=== PATIENT | female | born 1935 | race Caucasian/White ===

== ENCOUNTER → 2018-01-04 14:15 | Outpatient (REF) | payer MEDICARE, BC, SELFPAY ==
[2018-01-04 14:56] LABS: International Normalized Ratio 1.2
== END ==
LOC: OLS.DANBUR 14:15
DX: I48.91 Unspecified atrial fibrillation (principal)
CPT/HCPCS: 36415; 85610

== ENCOUNTER → 2018-01-08 05:30 | Outpatient (REF) | payer MEDICARE, BC, SELFPAY ==
[2018-01-08 09:08] LABS: International Normalized Ratio 1.5; Prothrombin Time (Protime)PT. 18.3 SECONDS (11.7-14.9)
== END ==
LOC: OLS.DANBUR 05:30
DX: Z79.01 Long term (current) use of anticoagulants (principal)
CPT/HCPCS: 36415; 85610

== ENCOUNTER → 2018-01-15 05:00 | Outpatient (REF) | payer MEDICARE, BC, SELFPAY ==
[2018-01-15 07:30] LABS: Prothrombin Time Fingerstick 26.8 SEC (11.9-14.4)
== END ==
LOC: OLS.DANBUR 05:00
PROVIDERS: Visit Provider Family Medicine
DX: Z79.01 Long term (current) use of anticoagulants (principal)
CPT/HCPCS: 36416; 85610

== ENCOUNTER 2018-08-05 13:30 | Outpatient (RCR) | payer MEDICARE, BC, SELFPAY ==
--- NOTE | 2018-07-08 15:25 | HP.OTEVAL ---
Patient's Visit Information KVNG ROSENBERG is a 83 year old F, referred to Occupational Therapy by Justin Walker, with a diagnosis of right radius fx.. Date of Evaluation: 07/08/18 Occupational Therapist: Jena Ortiz, FARNAZR/Oumar, CHT - Subjective Subjective: pt states she had a fall on 2017 while walking in her home. pt states she did not go to the [facility] until a week later. pt states she moved tow ribs out and they were painful- pt went to on and was placed in a brace for radius fx- pt is right handed pt needs custom orthosis. pt states its hard to perform meal prep- and - ADLs Dressing: Button shirt, Pants, Socks, Shoes Fasteners: Buttons, Pinon Eating: Use silverware Bathing: Handle washcloth & soap, Wash hair, Squeeze shampoo bottle Toileting: Manage clothing Kitchen: Peel fruits & vegetables, Open jars, Ziplock bags, Pour from pitcher Household: Laundry - Pain right hand 0 Pain Intensity Range: 0, 7 - ROM Forearm: right left WNL Wrist: right 50/45 left 60/55 CMC: right 10 left 20 MP: right 40 left 45 IP: right 45 left 58 - Strength Preparole Counseling Aide: right 18# left 30# Lateral Pinch: right unable left 6# Tripod Pinch: right Unable left unable - Sensation Sensation Comments: denies - Quick DASH-Disab of Arm,Shoulder& Hand Quick DASH Score: 65.9075 - Goals Goal:: pt will demo a increase in right flow floor attendant strength to 30# or greater to increase pts ind. with ADLs and IADLs by d/c. PT will demo a incrase in right pinch strength by 5# to increase pts ind. with FM pinch tasks as needle work by d/c Goal:: pt will demo a increase in right wrist qual to left to increase ind. with ADLs and IADLs by d/c Goal:: pt will report pain no greater than 1/10 with use of right hand with ADLs and IADLs by d/c Goal:: pt will report ind with sewing tasks by d/c Goal:: pt will demo understanding of joint protection herb, and use of ad. eq. to decrease joint stress with daily occupations by d/c Goal:: pt will demo understanding of orthosis use (right CMC ) with heavy work tasks and FM tasks to provide stability to right thumb. pt will demo understanding of orthosis precautions and return to facility for adj to decrease skin irritation and compliance with use. - Rehabilitation General Assessment: Pt demo limited right wrist ROM and pain in right thumb with daily tasks. pts pain and weakness limit the ability to use her right hand with daily occupations. Pt demo a need for skilled OT services 2x week for 4-6 weeks. Today therapist fabricated custom CMC orthosis for pt to wear under her current wrist brace to provide support and protection to pts right thumb. pt demo understanding of orthosis use and precautions and agrees to POC. Rehabilitation Potential: Good - Anticipated Interventions Anticipated Interventions: A/AAROM/PROM, Strengthening, Triggerpoint Release, Modalities, Orthoses, Joint Protection/Energy Conservation, Fine Motor Coord/Kenn - Visit Plan Frequency: 2-3x /Week Duration: 4 Weeks TEXT: Thank you for the opportunity to evaluate your patient. For Medicare and Medicare HMO plans, please review the plan of care and approve it. It will need to be FAXED BACK to us at [phone] for Medicare purposes. Please let me know if there are questions or concerns regarding this plan of care. Physician Signature: Date:
--- NOTE | 2018-08-05 14:01 | HP.OTREVAL ---
Justin Walker, It has been my pleasure to treat KVNG ROSENBERG over the last 9 visits for right radius fx.. Please see the progress note below for an update on the occupational therapy plan of care! Subjective: pt states she is doing ok- pt states she continues to have pain around right CMC region- pt states constant pain - pt states US will help for about 5-6 hours of relief. Objective/Function: pt demo right wrist ROM 65/40. RD/UD 15/15. right plastic molder 23# left 30#. right lateral pinch 8#. right tripod 8#. pt has made good gains with her ROM and functional use of right hand- states she does wear her right wrist brace during FMS. pt limited mostly with pain please re-eval and let me know what more we can do-. pt has underwent modalities, use of orthosis and PRE in a pain free ROM- pt limited with daily tasks due to pain. Plan Frequency: 2-3x /Week Duration: 4 Weeks Plan: pt to return to for further assesment-due to pts increase in pain around right CNC region with daily tasks. Goals - Goals Goal:: pt will demo a increase in right plastic molder strength to 30# or greater to increase pts ind. with ADLs and IADLs by d/c. PT will demo a incrase in right pinch strength by 5# to increase pts ind. with FM pinch tasks as needle work by d/c Goal:: pt will demo a increase in right wrist qual to left to increase ind. with ADLs and IADLs by d/c Goal:: pt will report pain no greater than 1/10 with use of right hand with ADLs and IADLs by d/c Goal:: pt will report ind with sewing tasks by d/c Goal:: pt will demo understanding of joint protection herb, and use of ad. eq. to decrease joint stress with daily occupations by d/c Goal:: pt will demo understanding of orthosis use (right CMC ) with heavy work tasks and FM tasks to provide stability to right thumb. pt will demo understanding of orthosis precautions and return to facility for adj to decrease skin irritation and compliance with use. Anticipated Interventions Anticipated Interventions: A/AAROM/PROM, Strengthening, Triggerpoint Release, Modalities, Orthoses, Joint Protection/Energy Conservation, Fine Motor Coord/Kenn Please do not hesitate to contact me at [phone] by phone or if you have questions or concerns regarding this new plan of care! Sincerely, Jena Ortiz OTR/L, CHT
--- NOTE | 2018-09-17 14:25 | HP.OTDCSUM_ITS ---
HP - OT D/C Summary It has been my pleasure to treat KVNG ROSENBERG under orders from Justin Walker, for the diagnosis of right radius fx. for a total of 9 visit(s). Please see the following information for a summary of their discharge status. - Objective Objective/Function: pt demo right wrist ROM 65/40. RD/UD /15. right software integrator 23# left 30#. right lateral pinch 8#. right tripod 8#. pt has made good gains with her ROM and functional use of right hand- states she does wear her right wrist brace during FMS. pt limited mostly with pain please re-eval and let me know what more we can do-. pt has underwent modalities, use of orthosis and PRE in a pain free ROM- pt limited with daily tasks due to pain. - Goals Patient Goals: Regain Mobility, Regain Strength, Decrease Pain, Improve Fine Motor Skills, Use Hand/Wrist/Arm Normally Again, Increase ROM, Be More Ind ependent in ADLS Goal:: pt will demo a increase in right software integrator strength to 30# or greater to increase pts ind. with ADLs and IADLs by d/c. PT will demo a incrase in right pinch strength by 5# to increase pts ind. with FM pinch tasks as needle work by d/c Goal:: pt will demo a increase in right wrist qual to left to increase ind. with ADLs and IADLs by d/c Goal:: pt will report pain no greater than 1/10 with use of right hand with ADLs and IADLs by d/c Goal:: pt will report ind with sewing tasks by d/c Goal:: pt will demo understanding of joint protection herb, and use of ad. eq. to decrease joint stress with daily occupations by d/c Goal:: pt will demo understanding of orthosis use (right CMC ) with heavy work tasks and FM tasks to provide stability to right thumb. pt will demo understanding of orthosis precautions and return to facility for adj to decrease skin irritation and compliance with use. - Plan Plan: pt to return to for further assesment-due to pts increase in pain around right CNC region with daily tasks. - D/C Information If there are questions or concerns regarding this patient's occupational therapy, please fell free to call me at [phone]. Thank you for the referral of this patient. Sincerely, Jena Ortiz OTR/Oumar, CHT
== END 2018-08-05 19:00 | disposition home or self-care (01) ==
LOC: OT 13:30
PROVIDERS: Family Provider Family Medicine; PCP Family Medicine; Referring Provider Orthopaedic Surgery; Visit Provider Orthopaedic Surgery
DX: M19.031 Primary osteoarthritis, right wrist (principal); M18.11 Unilateral primary osteoarthritis of first carpometacarpal joint, right hand; M65.4 Radial styloid tenosynovitis [de Quervain]; S60.211D Contusion of right wrist, subsequent encounter; S52.514D Nondisplaced fracture of right radial styloid process, subsequent encounter for closed fracture with routine healing; E66.01 Morbid (severe) obesity due to excess calories
CPT/HCPCS: 97035; 97110; 97140; 97166; 97168; 97530; 97760; 97763